=== PATIENT | male | born 1970 ===

== ENCOUNTER 2021-10-16 09:01 | Day surgery (SDC) | payer BC ==
[~2021-10-16 09:01] MED LIST: Metoclopramide 10 MG/2 ML SDV IV PRN; Sodium Chloride 0.9% 1,000 ML IV SCH
[2021-10-16] MEDS ORDERED: Propofol 200 MG/20 ML SDV ONE (12:00)
== END 2021-10-16 13:15 | disposition home or self-care (01) ==
LOC: LB.SDS 09:01
PROVIDERS: ATTEND Surgery
DX: Z12.11 Encounter for screening for malignant neoplasm of colon (principal); I10 Essential (primary) hypertension
CPT/HCPCS: J2704; J7030